=== PATIENT | male | born 1955 | race Asian ===

== ENCOUNTER 2020-06-18 09:16 | Emergency (ER) | payer OTHER ==
[~2020-06-18] VITALS: Ht 180.3 cm; Wt 90.7 kg
[2020-06-18] MEDS ORDERED: KEFLEX500 M1 PO (13:30)
[2020-06-18] MEDS ORDERED: NORCO 5-325 TA1 EAC2 PO (13:33)
[2020-06-18 13:46] VITALS: BP 141/89
== END 2020-06-18 13:47 | disposition home or self-care (01) ==
LOC: ER 09:16
DX: S61.211A Laceration without foreign body of left index finger without damage to nail, initial encounter (principal); X15.3XXA Contact with hot saucepan or skillet, initial encounter; Y93.89 Activity, other specified; Y92.89 Other specified places as the place of occurrence of the external cause; Y99.8 Other external cause status